=== PATIENT | female | born 1975 | race Caucasian/White ===

== ENCOUNTER → 2024-01-27 | Outpatient (CLI) | payer OTHER ==
--- NOTE | 2024-01-27 17:51 | XR ---
EXAMINATION TYPE: XR hand complete RT, XR wrist complete RT DATE OF EXAM: 01/27/2024 5:29 PM CLINICAL INDICATION: Female, 48 years old with history of S60.221A CONTUSION OF RIGHT HAND, INITIAL S 63.501A; [facility] COMPARISON: None TECHNIQUE: XR hand complete RT, XR wrist complete RT Frontal, lateral and oblique views were obtained . FINDINGS/IMPRESSION: No displaced fracture is definitively visualized. A subtle lucency involving the fifth metacarpal sha ft may represent nondisplaced fracture, correlate with tenderness. Attention on short-term follow-up imaging. [facility], , 01/27/2024 5:48 PM
== END | disposition home or self-care (01) ==
LOC: RADXRMAIN 17:07
PROVIDERS: ATTEND Emergency Medicine
DX: S60.221A Contusion of right hand, initial encounter (principal); S63.501A Unspecified sprain of right wrist, initial encounter